=== PATIENT | female | born 1980 | race African-American/Black ===

== ENCOUNTER 2019-07-05 10:42 | Inpatient (IN) | payer SELFPAY ==
[2019-07-05] VITALS (40 sets, daily range): BP systolic 70–195; BP diastolic 35–119
[~2019-07-05] VITALS: Ht 165.1 cm; Wt 62.6 kg
[2019-07-05] MEDS ORDERED: SODIUM CHLORIDE 0.9% 1,000 ML IV ONE ×2 (11:02→11:09)
[2019-07-05] MEDS ORDERED: VANCOMYCIN 1 G PREMIX 200 ML IV ONE (11:15)
[2019-07-05] MEDS ORDERED: PIPERACILLIN/TAZ 3.375G PREMIX 50 ML IV ONE (11:15)
[2019-07-05 11:42] LABS: CLARITY URINE TURBID (CLEAR); COLOR URINE DK YELLOW (YELLOW); KETONES URINE TRACE (NEGATIVE); LEUKOCYTE ESTERASE URINE 3+ (NEGATIVE); NITRITE URINE NEGATIVE (NEGATIVE); OCCULT BLOOD URINE 3+ (NEGATIVE); PROTEIN URINE 1+ (NEGATIVE); SPECIFIC GRAVITY URINE 1.018 (1.005-1.030)
[2019-07-05 11:50] LABS: BG FRACTION INSPIRED OXYGEN 21; BG HCO3 ACT 3.6 mmol/L (22.0-26.0); BG PCO2 21.2 mmHg (35.0-45.0); BG PH 6.845 (7.350-7.450); BG PO2 57.5 mmHg (75.0-100.0); BG SAMPLE SITE LEFT BRACHIAL; BG TOTAL HEMOGLOBIN < 4.5 g/dL (12.0-18.0); BG VENT MODE ROOM AIR
[2019-07-05] MEDS ORDERED: ETOMIDATE 2MG/ML 10ML VIAL IV ONE ×2 (12:14→12:15)
[2019-07-05] MEDS ORDERED: SUCCINYLCHOLINE CHLORIDE 200MG/10ML IV ONE ×2 (12:14→12:15)
[2019-07-05] MEDS ORDERED: PROPOFOL 10MG/ML 100ML 100 ML IV ONE (12:15)
[2019-07-05] MEDS ORDERED: MIDAZOLAM HCL 50 MG in DEXTROSE 5% WATER 40 ML IV ONE (12:15)
[2019-07-05 12:26] LABS: MEAN CORPUSCULAR HEMOGLOBIN 36.8 pg (28.0-32.0); MEAN CORPUSCULAR VOLUME 121.9 fL (81.0-99.0); MEAN PLATELET VOLUME 9.4 fl (7.4-10.4); PLATELET 129 x1000/uL (130-400); RED BLOOD CELL COUNT 0.96 mill/uL (4.2-5.4); RED CELL DISTRIBUTION WIDTH 17.3 % (11.6-14.6)
[2019-07-05 12:37] LABS: CHLORIDE 84 mEq/L (98-107)
[2019-07-05 12:38] LABS: HEMATOCRIT. 11.8 % (36.0-48.0); HEMOGLOBIN. 3.5 g/dL (12.0-16.0)
[2019-07-05 12:45] LABS: PROTHROMBIN TIME 53.4 sec (9.6-11.0)
[2019-07-05 12:48] LABS: INR 5.1
[2019-07-05] MEDS ORDERED: PHYTONADIONE 10 MG/10 ML ORALSYR PO ONE (13:00)
[2019-07-05] MEDS ORDERED: SODIUM BICARBONATE 150 MEQ in DEXTROSE 5% WATER 1,000 ML IV SCH ×2 (13:00→20:00)
[2019-07-05] MEDS ORDERED: CALCIUM GLUCONATE 100MG/ML 10ML VIAL IV ONE (13:00)
[2019-07-05 13:03] LABS: NUCLEATED RED BLOOD CELLS 2 /100 WBC; PLATELET ESTIMATE SLIGHTLY DECREASED
[2019-07-05] MEDS ORDERED: NOREPINEPHRINE 4MG/250ML PMX 250 ML IV ONE (14:30)
[2019-07-05] MEDS ORDERED: EPINEPHRINE 1 MG in SODIUM CHLORIDE 0.9% 249 ML IV PRN (14:30)
[2019-07-05] MEDS ORDERED: VASOPRESSIN 10 UNIT in SODIUM CHLORIDE 0.9% 99.5 ML IV SCH (14:30)
[2019-07-05 14:50] LABS: BG FRACTION INSPIRED OXYGEN 100; BG HCO3 ACT 4.2 mmol/L (22.0-26.0); BG PCO2 19.2 mmHg (35.0-45.0); BG PH 6.958 (7.350-7.450); BG PO2 466.8 mmHg (75.0-100.0); BG SAMPLE SITE RIGHT RADIAL; BG TIDAL VOLUME(mL) 450 mL; BG TOTAL HEMOGLOBIN < 4.5 g/dL (12.0-18.0); BG VENT MODE VENT - A/C; BG VENT RATE 14 set
[2019-07-05] MEDS ORDERED: NOREPINEPHRINE 4 MG in DEXTROSE 5% WATER 250 ML IV PRN (15:00)
[2019-07-05] MEDS ORDERED: OCTREOTIDE 1,000 MCG in SODIUM CHLORIDE 0.9% 98 ML IV SCH (15:00)
[2019-07-05] MEDS ORDERED: SODIUM BICARBONATE 8.4% 1 MEQ/ML 50ML SYR IV NR (15:15)
[2019-07-05] MEDS ORDERED: PROPOFOL 10MG/ML 100ML 100 ML IV PRN (15:30)
[2019-07-05] MEDS ORDERED: PANTOPRAZOLE 80 MG in SODIUM CHLORIDE 0.9% 100 ML IV SCH ×4 (15:30)
[2019-07-05] MEDS ORDERED: DEXTROSE 50% WATER 50ML SYRINGE IV PRN (15:45)
[2019-07-05] MEDS: OCTREOTIDE 1,000 MCG in SODIUM CHLORIDE 0.9% 98 ML IV SCH (15:59)
[2019-07-05] MEDS ORDERED: CEFTRIAXONE 1 G PREMIX 50 ML IV ONE ×2 (16:00→19:00)
[2019-07-05] MEDS ORDERED: IPRATROPIUM/ALBUTEROL 0.5-3(2.5)MG/3ML NEB HHN PRN (16:30)
[2019-07-05 17:19] LABS: BG BASE EXCESS -15.9 mmol/L (-2.0-2.0); BG CARBOXYHEMOGLOBIN 0.3 % (0.5-1.5); BG DEOXYHEMOGLOBIN 0.7 % (0.0-5.0); BG FRACTION INSPIRED OXYGEN 100; BG HCO3 ACT 9.6 mmol/L (22.0-26.0); BG METHEMOGLOBIN 0.7 % (0.0-1.5); BG OXYGEN SATURATION 99.3 % (92.0-98.5); BG OXYHEMOGLOBIN 98.3 % (94.0-97.0); BG PCO2 21.9 mmHg (35.0-45.0); BG PO2 446.4 mmHg (75.0-100.0); BG SAMPLE SITE RIGHT BRACHIAL; BG TIDAL VOLUME(mL) 450 mL; BG VENT MODE VENT - A/C; BG VENT RATE 24 set
[2019-07-05] MEDS ORDERED: BLOOD SUGAR DIAGNOSTIC STRIP TEST SCH (17:50)
[2019-07-05] MEDS ORDERED: METRONIDAZOLE 500 MG PREMIX 100 ML IV SCH (18:00)
[2019-07-05] MEDS ORDERED: LORAZEPAM 2MG/ML CPJ ONE (18:06)
[2019-07-05] MEDS ORDERED: INSULIN LISPRO 100 UNITS/ML SUBCUT SCH (18:20)
[2019-07-05] MEDS ORDERED: ALBUMIN HUMAN 25GM/100ML (25%) IV NR (18:30)
[2019-07-05] MEDS ORDERED: LORAZEPAM 2MG/ML CPJ IV NR (18:30)
[2019-07-05] MEDS: PIPERACILLIN/TAZOBACTAM 2.25 G in DEXTROSE 5% WATER 50 ML IV SCH ×2 (19:40→23:40)
[2019-07-05] MEDS: BLOOD SUGAR DIAGNOSTIC STRIP TEST SCH ×2 (19:52→23:26)
[2019-07-05] MEDS: INSULIN LISPRO 100 UNITS/ML SUBCUT SCH ×4 (19:58→23:41)
[2019-07-05 20:25] LABS: *AMPHETAMINES SCREEN URINE NEGATIVE (NEGATIVE); *BARBITURATES SCREEN URINE NEGATIVE (NEGATIVE); *BENZODIAZEPINES SCREEN URINE NEGATIVE (NEGATIVE)
[2019-07-05 20:26] LABS: *COCAINE SCREEN URINE NEGATIVE (NEGATIVE); CANNABINOID URINE SCREEN NEGATIVE (NEGATIVE); METHADONE URINE SCREEN NEGATIVE (NEGATIVE); OPIATES URINE SCREEN NEGATIVE (NEGATIVE); PHENCYCLIDINE URINE SCREEN NEGATIVE (NEGATIVE)
[2019-07-05] MEDS: IPRATROPIUM/ALBUTEROL 0.5-3(2.5)MG/3ML NEB HHN SCH (20:54)
[2019-07-05] MEDS ORDERED: SODIUM BICARBONATE 50 MEQ in DEXTROSE 5% WATER 1,000 ML IV SCH (21:00)
[2019-07-05] MEDS ORDERED: EPINEPHRINE 4 MG in SODIUM CHLORIDE 0.9% 246 ML IV PRN (21:15)
[2019-07-05] MEDS: NOREPINEPHRINE 32 MG in DEXT 5% WATER 468 ML IV PRN (22:21)
[2019-07-05] MEDS: VASOPRESSIN 10 UNIT in SODIUM CHLORIDE 0.9% 99.5 ML IV SCH (22:40)
[2019-07-05 22:54] LABS: MEAN CORPUSCULAR HEMOGLOBIN 31.7 pg (28.0-32.0); MEAN CORPUSCULAR VOLUME 95.8 fL (81.0-99.0); MEAN PLATELET VOLUME 9.6 fl (7.4-10.4); PLATELET 62 x1000/uL (130-400); RED BLOOD CELL COUNT 1.64 mill/uL (4.2-5.4); RED CELL DISTRIBUTION WIDTH 20.4 % (11.6-14.6)
[2019-07-05 23:00] LABS: HEMOGLOBIN. 5.2 g/dL (12.0-16.0)
[2019-07-05 23:01] LABS: HEMATOCRIT. 15.7 % (36.0-48.0)
[2019-07-05 23:05] LABS: CHLORIDE 83 mEq/L (98-107)
[2019-07-06] VITALS (107 sets, daily range): BP systolic 60–169; BP diastolic 18–116
[2019-07-06] MEDS: SODIUM BICARBONATE 50 MEQ in DEXTROSE 5% WATER 1,000 ML IV SCH ×2 (00:42→13:32)
[2019-07-06] MEDS ORDERED: SODIUM CHLORIDE 0.9% 250 ML IV NR ×2 (00:45→01:00)
[2019-07-06] MEDS ORDERED: CEFEPIME 2,000 MG in DEXT 5% WATER 100 ML IV SCH (01:00)
[2019-07-06 01:28] LABS: BG FRACTION INSPIRED OXYGEN 50; BG HCO3 ACT 5.3 mmol/L (22.0-26.0); BG PCO2 19.6 mmHg (35.0-45.0); BG PH 7.053 (7.350-7.450); BG PO2 123.7 mmHg (75.0-100.0); BG SAMPLE SITE LEFT FEMORAL; BG TIDAL VOLUME(mL) 450 mL; BG TOTAL HEMOGLOBIN < 4.5 g/dL (12.0-18.0); BG VENT MODE VENT - A/C; BG VENT RATE 24 set
[2019-07-06] MEDS ORDERED: SODIUM BICARBONATE 8.4% 1 MEQ/ML 50ML SYR IV NR ×2 (01:45→21:29)
[2019-07-06] MEDS: SUCRALFATE 1 G/10 ML UDC PO SCH ×4 (02:01→19:50)
[2019-07-06] MEDS: PANTOPRAZOLE SODIUM 40 MG/VIAL IV SCH ×2 (02:01→20:06)
[2019-07-06] MEDS: VASOPRESSIN 10 UNIT in SODIUM CHLORIDE 0.9% 99.5 ML IV SCH ×5 (02:12→19:51)
[2019-07-06] MEDS: IPRATROPIUM/ALBUTEROL 0.5-3(2.5)MG/3ML NEB HHN SCH ×3 (02:23→14:30)
[2019-07-06] MEDS: METRONIDAZOLE 500 MG PREMIX 100 ML IV SCH ×3 (02:24→17:49)
[2019-07-06 02:32] LABS: HEPATITIS B SURFACE ANTIGEN NEGATIVE
[2019-07-06 03:02] LABS: HEPATITIS A AB IGM NEGATIVE (NEGATIVE)
[2019-07-06] MEDS: INSULIN LISPRO 100 UNITS/ML SUBCUT SCH ×5 (03:58→23:03)
[2019-07-06] MEDS: BLOOD SUGAR DIAGNOSTIC STRIP TEST SCH ×5 (03:59→23:03)
[2019-07-06] MEDS ORDERED: SUCRALFATE 1 G/10 ML UDC PO SCH (07:50)
[2019-07-06 08:51] LABS: NUCLEATED RED BLOOD CELLS 1 /100 WBC; PLATELET ESTIMATE DECREASED
[2019-07-06 09:33] LABS: HEMATOCRIT. 22.3 % (36.0-48.0); HEMOGLOBIN. 7.3 g/dL (12.0-16.0); MEAN CORPUSCULAR HEMOGLOBIN 29.8 pg (28.0-32.0); RED BLOOD CELL COUNT 2.45 mill/uL (4.2-5.4); RED CELL DISTRIBUTION WIDTH 18.7 % (11.6-14.6)
[2019-07-06 10:02] LABS: BG BASE EXCESS -20.2 mmol/L (-2.0-2.0); BG CARBOXYHEMOGLOBIN 0.4 % (0.5-1.5); BG DEOXYHEMOGLOBIN 2.5 % (0.0-5.0); BG FRACTION INSPIRED OXYGEN 50; BG HCO3 ACT 6.2 mmol/L (22.0-26.0); BG METHEMOGLOBIN 0.2 % (0.0-1.5); BG OXYGEN SATURATION 97.5 % (92.0-98.5); BG OXYHEMOGLOBIN 96.9 % (94.0-97.0); BG PCO2 16.8 mmHg (35.0-45.0); BG PH 7.187 (7.350-7.450); BG PO2 119.6 mmHg (75.0-100.0); BG SAMPLE SITE RIGHT BRACHIAL; BG TIDAL VOLUME(mL) 450 mL; BG VENT MODE VENT - A/C; BG VENT RATE 24 set
[2019-07-06 10:08] LABS: INR 2.4; PROTHROMBIN TIME 25.3 sec (9.6-11.0)
[2019-07-06] MEDS ORDERED: PROPOFOL 10MG/ML 100ML 100 ML IV PRN (10:45)
[2019-07-06] MEDS ORDERED: LORAZEPAM 2MG/ML CPJ IV PRN (10:45)
[2019-07-06] MEDS: OCTREOTIDE 1,000 MCG in SODIUM CHLORIDE 0.9% 98 ML IV SCH (12:12)
[2019-07-06 12:17] LABS: PHOSPHORUS 8.4 mg/dL (2.5-4.9)
[2019-07-06 12:20] LABS: PLATELET 52 x1000/uL (130-400)
[2019-07-06 12:24] LABS: NUCLEATED RED BLOOD CELLS 12 /100 WBC; PLATELET ESTIMATE MARKEDLY DECREASED
[2019-07-06] MEDS ORDERED: POLYVINYL ALCOHOL OPHTH DROPS 15ML BOTHEYE PRN (13:15)
[2019-07-06 14:13] LABS: BG BASE EXCESS -9.5 mmol/L (-2.0-2.0); BG CARBOXYHEMOGLOBIN 0.3 % (0.5-1.5); BG METHEMOGLOBIN 0.1 % (0.0-1.5); BG OXYGEN SATURATION 84.9 % (92.0-98.5); BG OXYHEMOGLOBIN 84.6 % (94.0-97.0); BG PCO2 23.9 mmHg (35.0-45.0); BG PH 7.386 (7.350-7.450); BG PO2 47.3 mmHg (75.0-100.0); BG SAMPLE SITE RIGHT BRACHIAL; BG TIDAL VOLUME(mL) 450 mL; BG TOTAL HEMOGLOBIN 10.4 g/dL (12.0-18.0); BG VENT MODE VENT - A/C; BG VENT RATE 24 set
[2019-07-06 15:42] LABS: HEMATOCRIT 28.9 % (36.0-48.0); HEMOGLOBIN 9.8 g/dL (12.0-16.0); MEAN CORPUSCULAR HEMOGLOBIN 30.9 pg (28.0-32.0); MEAN CORPUSCULAR VOLUME 91.6 fL (81.0-99.0); PLATELET 61 x1000/uL (130-400); RED BLOOD CELL COUNT 3.16 mill/uL (4.2-5.4); RED CELL DISTRIBUTION WIDTH 18.8 % (11.6-14.6)
[2019-07-06 16:06] LABS: D-DIMER 4.37 mg/L FEU (<0.50); INR 3.1; PARTIAL THROMBOPLASTIN TIME 52.7 sec (23.4-31.0); PROTHROMBIN TIME 32.4 sec (9.6-11.0)
[2019-07-06 16:12] LABS: VITAMIN B12 SERUM >2000 pg/mL pg/mL (211-911)
[2019-07-06] MEDS: DEXTROSE 50% WATER 50ML SYRINGE IV PRN ×4 (16:29→23:04)
[2019-07-06] MEDS ORDERED: PHYTONADIONE 10 MG/10 ML ORALSYR NG NR (17:00)
[2019-07-06 19:47] LABS: HEMATOCRIT. 27.1 % (36.0-48.0); HEMOGLOBIN. 9.1 g/dL (12.0-16.0); MEAN CORPUSCULAR HEMOGLOBIN 30.8 pg (28.0-32.0); MEAN CORPUSCULAR VOLUME 92.1 fL (81.0-99.0); MEAN PLATELET VOLUME 10.1 fl (7.4-10.4); RED BLOOD CELL COUNT 2.94 mill/uL (4.2-5.4); RED CELL DISTRIBUTION WIDTH 17.3 % (11.6-14.6)
[2019-07-06 20:06] LABS: PLATELET 42 x1000/uL (130-400)
[2019-07-06] MEDS: NOREPINEPHRINE 32 MG in DEXT 5% WATER 468 ML IV PRN (20:07)
[2019-07-06 20:25] LABS: NUCLEATED RED BLOOD CELLS 27 /100 WBC; PLATELET ESTIMATE MARKEDLY DECREASED
[2019-07-06 21:23] LABS: BG BASE EXCESS -21.6 mmol/L (-2.0-2.0); BG CARBOXYHEMOGLOBIN 0.3 % (0.5-1.5); BG DEOXYHEMOGLOBIN 13.9 % (0.0-5.0); BG FRACTION INSPIRED OXYGEN 100; BG METHEMOGLOBIN 0.2 % (0.0-1.5); BG OXYHEMOGLOBIN 85.6 % (94.0-97.0); BG PCO2 25.2 mmHg (35.0-45.0); BG PH 7.061 (7.350-7.450); BG SAMPLE SITE RIGHT BRACHIAL; BG TIDAL VOLUME(mL) 450 mL; BG TOTAL HEMOGLOBIN 8.8 g/dL (12.0-18.0); BG VENT MODE VENT - A/C; BG VENT RATE 26 set
[2019-07-06] MEDS ORDERED: EPINEPHRINE 8 MG in SODIUM CHLORIDE 0.9% 492 ML IV PRN (21:45)
[2019-07-06] MEDS ORDERED: SODIUM BICARBONATE 150 MEQ in DEXTROSE 5% WATER 1,000 ML IV SCH (22:00)
[2019-07-07] VITALS (34 sets, daily range): BP systolic 40–197; BP diastolic 21–139
[2019-07-07] MEDS: VASOPRESSIN 10 UNIT in SODIUM CHLORIDE 0.9% 99.5 ML IV SCH ×2 (00:11→04:35)
[2019-07-07 00:55] LABS: HEMATOCRIT 38.2 % (36.0-48.0); HEMOGLOBIN 11.9 g/dL (12.0-16.0)
[2019-07-07] MEDS ORDERED: CEFEPIME 1,000 MG in DEXTROSE 5% WATER 50 ML IV SCH (01:00)
[2019-07-07] MEDS: SUCRALFATE 1 G/10 ML UDC PO SCH (01:01)
[2019-07-07] MEDS: METRONIDAZOLE 500 MG PREMIX 100 ML IV SCH (01:01)
[2019-07-07] MEDS: BLOOD SUGAR DIAGNOSTIC STRIP TEST SCH (05:43)
[2019-07-07] MEDS: INSULIN LISPRO 100 UNITS/ML SUBCUT SCH (05:43)
[2019-07-07] MEDS ORDERED: AMIKACIN SULFATE 450 MG in SODIUM CHLORIDE 0.9% 100 ML IV NR (06:00)
[2019-07-07 06:43] LABS: BG HCO3 ACT 13.6 mmol/L (22.0-26.0); BG PCO2 30.1 mmHg (35.0-45.0); BG PH 7.274 (7.350-7.450); BG PO2 99.9 mmHg (75.0-100.0); BG SAMPLE SITE LEFT FEMORAL; BG TIDAL VOLUME(mL) 450 mL; BG TOTAL HEMOGLOBIN < 4.5 g/dL (12.0-18.0); BG VENT MODE VENT - A/C; BG VENT RATE 30 set
[2019-07-07] MEDS ORDERED: DEXTROSE 50% WATER 50ML VIAL IV ONE (08:00)
[2019-07-07] MEDS ORDERED: CALCIUM CHLORIDE 1GM/10ML SYR IV ONE (08:00)
[2019-07-07] MEDS ORDERED: EPINEPHRINE 0.1MG/ML (1:10,000) 10ML SYR ONE (08:00)
[2019-07-07] MEDS ORDERED: SODIUM BICARBONATE 8.4% MEQ/ML 50ML VIAL IV ONE (08:00)
[2019-07-07 10:08] LABS: HIV SCREEN 4G Non Reactive (Non Reactive)
[2019-07-09 13:10] LABS: FOLATE RBC 1433 ng/mL (>498)
== END 2019-07-07 08:05 | disposition expired | DRG 720 ==
LOC: ER 10:56 → EDBEDREQSVC 12:11 → CVICU 13:04 → EDBEDREQTM 13:14 → EDBEDREQ 13:14 → ENRESERV 13:39
PROVIDERS: ADMIT Family Medicine; ATTEND Family Medicine
PROC: 5A1945Z Respiratory Ventilation, 24-96 Consecutive Hours (ICD-10-PCS; 2019-07-05)
PROC: 30233K1 Transfusion of Nonautologous Frozen Plasma into Peripheral Vein, Percutaneous Approach (ICD-10-PCS; 2019-07-05)
PROC: 30233N1 Transfusion of Nonautologous Red Blood Cells into Peripheral Vein, Percutaneous Approach (ICD-10-PCS; 2019-07-05)
PROC: 5A1D70Z Performance of Urinary Filtration, Intermittent, Less than 6 Hours Per Day (ICD-10-PCS; 2019-07-05)
PROC: 0BH17EZ Insertion of Endotracheal Airway into Trachea, Via Natural or Artificial Opening (ICD-10-PCS; 2019-07-05)
PROC: 06HY33Z Insertion of Infusion Device into Lower Vein, Percutaneous Approach (ICD-10-PCS; 2019-07-05)
PROC: 02HV33Z Insertion of Infusion Device into Superior Vena Cava, Percutaneous Approach (ICD-10-PCS; principal; 2019-07-06)
PROC: B548ZZA Ultrasonography of Superior Vena Cava, Guidance (ICD-10-PCS; 2019-07-06)
PROC: 5A1D70Z Performance of Urinary Filtration, Intermittent, Less than 6 Hours Per Day (ICD-10-PCS; 2019-07-06)
PROC: 5A12012 Performance of Cardiac Output, Single, Manual (ICD-10-PCS; 2019-07-07)
DX: A41.9 Sepsis, unspecified organism (principal); D65 Disseminated intravascular coagulation [defibrination syndrome]; J96.01 Acute respiratory failure with hypoxia; K72.00 Acute and subacute hepatic failure without coma; E43 Unspecified severe protein-calorie malnutrition; N17.0 Acute kidney failure with tubular necrosis; D68.4 Acquired coagulation factor deficiency; D62 Acute posthemorrhagic anemia; E87.1 Hypo-osmolality and hyponatremia; I46.9 Cardiac arrest, cause unspecified; E87.2 Acidosis; E86.1 Hypovolemia; D50.9 Iron deficiency anemia, unspecified; D53.9 Nutritional anemia, unspecified; E87.5 Hyperkalemia; F10.10 Alcohol abuse, uncomplicated; I51.7 Cardiomegaly; R94.31 Abnormal electrocardiogram [ECG] [EKG]; K92.2 Gastrointestinal hemorrhage, unspecified; N18.9 Chronic kidney disease, unspecified; R73.9 Hyperglycemia, unspecified; N39.0 Urinary tract infection, site not specified; R65.21 Severe sepsis with septic shock; Z68.23 Body mass index [BMI] 23.0-23.9, adult
CPT/HCPCS: 36415; 36600; 71045; 76700; 76937; 80048; 80053; 80076; 80305; 81003; 82010; 82105; 82140; 82375; 82607; 82747; 82805; 82962; 83036; 83605; 83735; 84100; 84145; 84478; 84484; 85014; 85018; 85025; 85027; 85362; 85379; 85384; 86705; 86709; 86803; 86850; 86900; 86920; 86927; 87070; 87077; 87186; 87340; 87389; 87804; 93005; 93306; 93970; 94002; 94003; 94640; 99291; C1752; C1769; C9113; J0278; J0330; J0610; J0692; J0696; J1815; J2060; J2250; J2354; J2543; J2704; J3370; J3430; J3490; J7030; J7050; J7060; J7070; P9016; P9017; P9047